=== PATIENT | female | born 1995 | race Caucasian/White ===

== ENCOUNTER 2019-10-26 10:40 | Emergency (ER) | payer OTHER ==
--- NOTE | 2019-10-26 12:29 | ER Document Report ---
ED General - General Chief Complaint: Congestion Stated Complaint: HEADACHE,NO TASTE OR SMELL Time Seen by Provider: 10/26/19 11:40 Notes: HPI: Patient is a 24-year-old female who states around a week ago she started to get some nasal congestion and a sore throat. She saw her primary care physician with a negative strep. Sore throat has resolved. She continues to have nasal congestion. She states she has lost the sense of taste and smell and is worried about coronavirus. Patient denies any headache, double blurry vision, fevers, neck pain, cough or shortness of breath. No weakness or numbness. She denies any facial swelling or difficulty swallowing. ROS: See HPI All other review of systems reviewed and otherwise negative Reviewed vital signs and nursing note as charted by RN. PHYSICAL EXAM: CONSTITUTIONAL: Alert and oriented and responds appropriately to questions. Well-appearing; well-nourished HEAD: Normocephalic; atraumatic EYES: PERRL; Conjunctivae clear, sclerae non-icteric ENT: Normal nose; bilateral nonpurulent nasal rhinorrhea; no facial swelling or tenderness to palpation of the sinuses; moist mucous membranes; pharynx without lesions noted NECK: Supple without meningismus; non-tender; no cervical lymphadenopathy, no masses CARD: Regular rate and rhythm; no murmurs; symmetric distal pulses RESP: Normal chest excursion without splinting or tachypnea; breath sounds clear and equal bilaterally ABD/GI: Normal bowel sounds; non-distended; soft, non-tender BACK: The back appears normal and is non-tender to palpation EXT: Normal ROM in all joints; non-tender to palpation; no edema SKIN: No acute lesions noted NEURO: CN 2-12 intact; 5/5 bilateral upper and lower extremity strength with sensation intact to light touch PSYCH: The patient's mood and manner are appropriate. Grooming and personal hygiene are appropriate. Past Medical History - Social History Smoking Status: Never Smoker Family History: Reviewed & Not Pertinent Physical Exam - Vital signs Vitals: Temp Pulse Resp BP Pulse Ox 98.2 F 71 16 121/69 94 10/26/19 10:52 10/26/19 10:52 10/26/19 10:52 10/26/19 10:52 10/26/19 10:52 Course - Re-evaluation Re-evalutation: 10/26/19 12:29 Given the history and physical examination with nasal congestion, with no signs of sinusitis, afebrile, no posterior pharyngeal lesions, no cough or shortness of breath, vital signs as recorded, no weakness or numbness, do not believe the patient requires any imaging or laboratory work at this time. We will send a coronavirus test and discharge the patient home with strict return precautions and instructions regarding quarantine. - Vital Signs Vital signs: Temp Pulse Resp BP Pulse Ox 98.2 F 71 16 121/69 94 10/26/19 10:52 10/26/19 10:52 10/26/19 10:52 10/26/19 10:52 10/26/19 10:52 Discharge - Discharge Clinical Impression: Nasal congestion Condition: Good Disposition: HOME, SELF-CARE Additional Instructions: Come back immediately for any difficulty breathing, shortness of breath, facial swelling, difficulty breathing or swallowing, weakness or numbness, or any other acute problems. Please follow-up with your primary care physician for reassessment. Please make sure that you are quarantined until symptoms resolve and testing has been completed.
[2019-10-26 12:55] VITALS: BP 118/69
== END 2019-10-26 12:52 | disposition home or self-care (01) ==
LOC: ER 10:40
DX: U07.1 COVID-19 (principal); R09.81 Nasal congestion; R51 Headache; R43.8 Other disturbances of smell and taste; J02.9 Acute pharyngitis, unspecified
CPT/HCPCS: 99283; 87635; C9803

== ENCOUNTER 2020-04-29 07:14 | Day surgery (SDC) | payer OTHER ==
[~2020-04-29 07:14] MED LIST: LIDOCAINE 2% INJ-PF (20 MG/ML) 10 ML AMPUL ONE; PROPOFOL INJ 200 MG/20 ML VIAL IV ONE
[2020-04-29 08:59] VITALS: BP 100/79
--- NOTE | 2020-04-29 11:47 | Operative Report ---
Operative Report DATE OF SURGERY: 04/29/20 Operative Report: The risk, benefits and alternatives of the procedure including the risk of bleeding, perforation requiring surgery have been explained to the patient in detail and informed consent has been obtained. Patient is placed in left, lateral decubital position. Timeout was called. Propofol medication is administered. A rectal examination is done which did not reveal any masses, tears or fissures. An Olympus videoscope was introduced into the patient's rectum. Scope was then carefully advanced all the way to the cecum. Cecum was identified by the usual anatomical landmarks including the ileocecal valve as well as the appendiceal office. Photodocumentation is obtained. The scope was then sequentially pulled back via with the various segments of the colon including the ascending colon, hepatic flexure, transverse colon, splenic flexure, descending colon and finally into the rectosigmoid portions of the colon. Retroflexion maneuver is performed. The risks benefits and alternatives of the procedure explained to the patient in detail and informed consent is obtained.A GIF Olympus video scope was inserted into the patient's mouth and hypopharynx, the esophagus is identified intubated and insufflated ,the scope was then advanced through the esophagus stomach and duodenum ,retroflexion maneuver is done ,the esophagus stomach and first and second portions of the duodenum examined PREOPERATIVE DIAGNOSIS: Change in bowel habits. Gastroesophageal reflux disease POSTOPERATIVE DIAGNOSIS: Intubation of the terminal ileum was done random biopsies to rule out Crohn's disease. Gastritis status post biopsy OPERATION: Colonoscopy with biopsy. EGD with biopsy SURGEON: LIOR CAPONE ANESTHESIA: LMAC TISSUE REMOVED OR ALTERED: As noted above. COMPLICATIONS: None. ESTIMATED BLOOD LOSS: None. INTRAOPERATIVE FINDINGS: As noted above. PROCEDURE: Patient tolerated procedure well. No immediate postprocedure complications are noted. Patient is discharged in good condition. Discharge date 04/29/2020 Discharge diet: Regular. Discharge activity: Regular. 2 to 3-week follow-up to discuss findings. Patient is instructed call the office or proceed to the emergency room should there be any further problems or questions. Wait on the pathology.
== END 2020-04-29 10:35 | disposition home or self-care (01) ==
LOC: OROUT 07:14
PROVIDERS: ATTEND Internal Medicine Gastroenterology
DX: K29.50 Unspecified chronic gastritis without bleeding (principal); K50.00 Crohn's disease of small intestine without complications; K21.9 Gastro-esophageal reflux disease without esophagitis; D68.2 Hereditary deficiency of other clotting factors; Z79.899 Other long term (current) drug therapy; Z79.3 Long term (current) use of hormonal contraceptives; Z20.828 Contact with and (suspected) exposure to other viral communicable diseases
CPT/HCPCS: 43239; 45380; 88342 ×2; 88305 ×2; 00813; J2704; J3490; 813